=== PATIENT | male | born 1980 | race Caucasian/White ===

== ENCOUNTER → 2017-04-30 | Outpatient (CLI) | payer OTHER ==
--- NOTE | ~2017-04-30 | MR164 ---
[facility] A Service of [facility] & [facility] RADIOLOGY TEXT RESULTS PATIENT: CHEKO WILLSON LOCATION: [facility] : [birth year] UNIT #: [id number] AGE: [address]: Miguel Angel Pollard MD SEX: M ORDER DR: [id number] [address] [address] [id number] O MR#: [id number] Acc #: [id number] NAME: CHEKO WILLSON : 1980 SEX: M STUDY DATE/TIME: 04/30/2017 13:29 UNIT: [facility] ROOM: STUDY DESCRIPTION: MR Shoulder Wo Contrast Lt Attending Physician: Miguel Angel Pollard M.D. Referring Physician: Miguel Angel Pollard M.D. Ordering Physician: Miguel Angel Pollard M.D. Primary Care Physician: Miguel Angel Pollard M.D. MRI CENTER REPORT This report is preliminary unless electronic signature is present. EXAM MRI of the left shoulder without contrast. HISTORY Complains of bilateral shoulder pain, left greater than right, for over 6 weeks. Injury 03/21/2017. Lost control of heavy lawnmower on hill with wet grass. FINDINGS Multiplanar multiecho imaging was performed of the left shoulder utilizing a high-field magnet dedicated protocol. Examination demonstrates mild AC joint arthropathy with the distal clavicular edema and capsular edema compatible with active inflammatory component. Marrow signal within the proximal humerus and glenoid appears normal. Joint fluid within normal limits. There is supraspinatus tendinopathy with a non-retracted full-thickness tear involving the anterior footplate insertion of the supraspinatus tendon. This measures no more than 6 mm medial to lateral x 8 mm AP dimension. Small amount of adjacent bursal inflammation. The infraspinatus, teres minor and subscapularis tendons appear intact. No muscle atrophy or edema. Superior labrum, biceps anchor and long tendon of the biceps appears normal. Extraarticular soft tissues unremarkable. There is a small peritendinous cyst coursing along the supraspinatus tendon measuring no more than 3 mm in width and measuring about 1.8 cm in length. IMPRESSION 1. Supraspinatus tendinopathy with a non-retracted suspected full-thickness tear anterior footplate insertion supraspinatus tendon. 2. 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 No evidence of STS. [facility] A Service of [facility] & [facility] RADIOLOGY TEXT RESULTS PATIENT: CHEKO WILLSON LOCATION: [facility] : 78 UNIT #: [id number] AGE: [address]: Miguel Angel Pollard MD SEX: M ORDER DR: AC joint separation. Dictated by... Lizbeth Gordon M.D. THIS IS AN ELECTRONICALLY VERIFIED REPORT Lizbeth Gordon M.D. at 05/01/2017 4:48 PM Rosas TD: 05/01/2017 11:09 JOB #: [id number] MRI CENTER REPORT Page 1 of 1
--- NOTE | ~2017-04-30 | MR165 ---
[facility] A Service of [facility] & [facility] RADIOLOGY TEXT RESULTS PATIENT: CHEKO WILLSON LOCATION: [facility] : 78 UNIT #: [id number] AGE: [address]: Miguel Angel Pollard MD SEX: M ORDER DR: [id number] [address] [address] [id number] O MR#: [id number] Acc #: [id number] NAME: CHEKO WILLSON : 1980 SEX: M STUDY DATE/TIME: 04/30/2017 13:09 UNIT: [facility] ROOM: STUDY DESCRIPTION: MR Shoulder Wo Contrast Rt Attending Physician: Miguel Angel Pollard M.D. Referring Physician: Miguel Angel Pollard M.D. Ordering Physician: Miguel Angel Pollard M.D. Primary Care Physician: Miguel Angel Pollard M.D. MRI CENTER REPORT This report is preliminary unless electronic signature is present. EXAM MRI of the right shoulder without contrast HISTORY A 36-year-old male injury, 03/21/2017 lost control of heavy lawnmower on hill cutting wet grass. Bilateral shoulder pain left greater than right for over 6 weeks. COMPARISON STUDIES MRI of the left shoulder 04/30/2017 FINDINGS Multiplanar multiecho imaging was performed of the right shoulder utilizing a high field magnet and dedicated protocol. There is mild AC joint arthropathy with some periarticular edema consistent with active inflammatory component. No evidence of AC joint separation or occult fracture. The glenohumeral joint fluid within normal limits. Supraspinatus tendinopathy with a partial-thickness articular-sided tear at the anterior distal insertion of the supraspinatus tendon measuring about 5 mm medial to lateral x 6 mm AP dimension. This involves about 50% of the thickness of the tendon. Mild infraspinatus tendinopathy. Teres minor and subscapularis tendons appear intact. No muscle atrophy or edema. Superior labrum biceps anchor and long tendon of the biceps appears intact. Visualized labrum appears normal. The deltoid extraarticular soft tissues appear normal. IMPRESSION 1. Supraspinatus and infraspinatus tendinopathy with a small partial-thickness articular-sided tear distal supraspinatus tendon measuring 5 x 6 mm. [facility]. [facility] A Service of [facility] RADIOLOGY TEXT RESULTS PATIENT: CHEKO WILLSON LOCATION: [facility] : 78 UNIT #: [id number] AGE: [address]: Miguel Angel Pollard MD SEX: M ORDER DR: 2. AC joint arthropathy with some periarticular inflammation. 3. Not mentioned above, there is fluid along the superior myotendinous junction of the infraspinatus tendon measuring up to 1.5 cm. I suspect this represents a peritendinous cyst and frequently associated with underlying cuff pathology. Dictated by... Lizbeth Gordon M.D. THIS IS AN ELECTRONICALLY VERIFIED REPORT Lizbeth Gordon M.D. at 05/01/2017 4:48 PM KAREN/raj TD: 05/01/2017 13:06 JOB #: [id number] MRI CENTER REPORT Page 1 of 1
== END | disposition home or self-care (01) ==
LOC: SMRI 12:34
DX: M25.511 Pain in right shoulder (principal); M25.512 Pain in left shoulder; M75.82 Other shoulder lesions, left shoulder; M16.12 Unilateral primary osteoarthritis, left hip; R60.0 Localized edema; M75.81 Other shoulder lesions, right shoulder; S46.811A Strain of other muscles, fascia and tendons at shoulder and upper arm level, right arm, initial encounter
CPT/HCPCS: 73221